=== PATIENT | female | born 1950 | race Hispanic/Latino ===

== ENCOUNTER 2020-05-12 05:55 | Observation (INO) | payer MEDICARE, OTHER ==
--- NOTE | 2020-05-08 11:33 | Diagnostic Imaging Report ---
EXAMINATION: CHEST 2 VIEWS INDICATION: Pre-operative COMPARISON: None FINDINGS: LINES/TUBES:None LUNGS:The lungs are well-inflated. No focal consolidation or pulmonary edema. PLEURA:No pleural effusion or pneumothorax. MEDIASTINUM:The cardiomediastinal silhouette appears normal in size and shape. BONES/SOFT TISSUES:No acute osseous injury. ABDOMEN:No free air under the diaphragm. IMPRESSION: No focal pneumonia or pulmonary edema. Signed by: Astrid Blackwell MD on 05/08/2020 11:30 AM
[2020-05-08 11:46] LABS: BASOPHILS # (AUTO) 0.1 (0.0-0.1); BASOPHILS % 0.6 % (0.0-1.0); EOSINOPHILS # (AUTO) 0.2 (0.0-0.4); EOSINOPHILS % 2.1 % (0.0-6.0); HEMATOCRIT 39.2 % (34.2-44.1); HEMOGLOBIN 12.2 g/dL (12.0-16.0); LYMPHOCYTES # (AUTO) 2.5 (1.0-3.2); LYMPHOCYTES % 32.4 % (18.0-39.1); MEAN CORPUSCULAR HGB CONC 31.1 g/dL (31-35); MEAN CORPUSCULAR VOLUME 83.4 fL (81-99); MONOCYTES # (AUTO) 0.8 (0.2-0.8); MONOCYTES % 10.2 % (4.4-11.3); NEUTROPHILS # (AUTO) 4.2 (2.1-6.9); NEUTROPHILS % 54.3 % (38.7-80.0); PLATELET COUNT 292 x10e3/uL (140-360); RED CELL DISTRIBUTION WIDTH 14.4 % (11.7-14.4)
[2020-05-08 12:01] LABS: ANION GAP 11.5 mmol/L (8-16); BLOOD UREA NITROGEN 12 mg/dL (7-26); BUN/CREATININE RATIO 15 (6-25); CALCIUM 9.6 mg/dL (8.4-10.2); CARBON DIOXIDE 28 mmol/L (22-29); CHLORIDE 104 mmol/L (98-107); CREATININE, SERUM 0.79 mg/dL (0.57-1.11); EST GLOMERULAR FILTRATION RATE > 60 ML/MIN (60-); GLUCOSE 98 mg/dL (74-118); POTASSIUM 4.5 mmol/L (3.5-5.1); SODIUM 139 mmol/L (136-145)
[~2020-05-12] VITALS: Ht 160 cm; Wt 104.3 kg
[2020-05-12] VITALS (7 sets, daily range): BP systolic 98–129; BP diastolic 46–65
[~2020-05-12 05:55] MED LIST: AMLODIPINE BESYL5 MG PO; CLONIDINE HCL0.1 MG PO; OLMESARTAN-HCT1 EAC1 PO
[2020-05-12] MEDS ORDERED: BACITRACIN 50,000 UNIT VIAL ONE (06:47)
[2020-05-12] MEDS ORDERED: SODIUM CHLORIDE 0.9% 500ML 500 ML ONE (06:48)
[2020-05-12] MEDS ORDERED: VANCOMYCIN HCL 1,000 MG ONE (06:48)
[2020-05-12] MEDS ORDERED: TRANEXAMIC ACID 1,000 MG/10 ML ML ONE (06:49)
[2020-05-12] MEDS ORDERED: diclofenac PO (07:04)
[2020-05-12] MEDS ORDERED: CEFAZOLIN SOD 1 GM/NS 50ML 100 ML IV ONE (07:14)
[2020-05-12] MEDS ORDERED: GABAPENTIN 300 MG CAP ONE (07:14)
[2020-05-12] MEDS ORDERED: CELECOXIB 200 MG CAP ONE (07:14)
[2020-05-12] MEDS ORDERED: DEXAMETHASONE SOD PHOS 10 MG/1 ML VIAL ONE (07:14)
[2020-05-12] MEDS ORDERED: ROPIVACAINE 246.25 MG, EPINEPHRINE HCL 1:1000 1ML 0.5 MG, CLONIDINE HCL 0.08 MG, KETORO... INJ ONE ×5 (08:00)
[2020-05-12] MEDS ORDERED: ACETAMINOPHEN 650 MG SUPP PR PRN (09:30)
[2020-05-12] MEDS ORDERED: ZOLPIDEM TARTRATE 5 MG TAB PO PRN ×2 (09:30→21:00)
[2020-05-12] MEDS ORDERED: DOCUSATE SODIUM 100 MG CAP PO PRN (09:30)
[2020-05-12] MEDS ORDERED: DIPHENHYDRAMINE HCL INJ 50 MG/ML VIAL IV PRN ×2 (09:30→15:00)
[2020-05-12] MEDS ORDERED: ONDANSETRON HCL INJ 2MG/ML 2ML 2 MG/ML VIAL IV PRN (09:30)
[2020-05-12] MEDS ORDERED: HYDROCODONE/APAP 5MG-325MG TAB PO PRN (09:30)
--- NOTE | 2020-05-12 10:14 | Diagnostic Imaging Report ---
EXAMINATION: KNEE RIGHT 1-2 VIEWS INDICATION: Postoperative COMPARISON: None FINDINGS: AP and lateral portable radiographs of the right knee demonstrate immediate postoperative findings of right total knee replacement. Alignment is anatomic. No unexpected fracture. Postoperative subcutaneous soft tissue emphysema. Surgical skin ly in place. IMPRESSION: Anatomic alignment status post right total knee replacement. Signed by: Astrid Blackwell MD on 05/12/2020 10:11 AM
--- NOTE | 2020-05-12 11:27 | Operative Report ---
DATE OF PROCEDURE: 05/12/2020 SURGEON: Raheem Johnson MD SNUFF GRINDER AND SCREENER: Chris Lopez PA-C. PREOPERATIVE DIAGNOSIS: Osteoarthritis, right knee. POSTOPERATIVE DIAGNOSIS: Osteoarthritis, right knee. PROCEDURE: Right total knee arthroplasty, * added complexity secondary to BMI greater than 40. INDICATIONS: The patient is a 69-year-old lady with end-stage arthritis of her right knee. She has failed conservative management and would like to proceed with a right total knee replacement. The risks and benefits of the procedure have been explained. All of her questions have been answered. She states she understands and wishes to proceed. PROCEDURE IN DETAIL: The patient was brought to the operating room and placed under general anesthetic. She received prophylactic antibiotics, a regional block, and tranexamic acid in the holding area. Her right lower extremity was prepped and draped in a sterile manner. A preoperative time-out was performed. Added time and personnel were necessary for prepping, draping, and positioning due to the patient's body mass index over 40. The leg was exsanguinated and a proximal tourniquet was inflated to 300 mmHg. An anterior incision with a medial parapatellar arthrotomy was performed. A slightly more extensile incision was necessary due to the patient's body mass index. Soft tissue releases were performed to bring the knee up into flexion with the patella everted. Marginal osteophytes, meniscal remnants in the cruciate ligaments were removed. A [employer] posterior stabilized knee system with ultracongruent tibial inserts were used. An extramedullary cutting guide was used to resect the proximal tibia. The tibial base plate was noted to be a size 4. The central fin punch was impacted and attention was directed towards the distal femur. An intramedullary cutting guide was used to resect the distal femur in 6 degrees of valgus and rotation referencing off a combination of landmarks including the posterior condyles, Whitesides line and the epicondylar axis. The femoral component was a size 5. The anterior and posterior cuts were made. Trial reductions were performed. A 9 mm ultracongruent tibial insert provided appropriate soft tissue balancing in full extension and 90 degrees of flexion. The patella was resurfaced with a 29 mm x 7.5 mm patellar button. The thickness was checked before and after resurfacing and was right around 22 mm. Patellar tracking was noted to be concentric. The trial implants were then all removed. The knee was thoroughly irrigated with a shower tip pulsatile lavage. All bone cuts had also been irrigated with a spray mixture of diluted polymyxin and vancomycin spray. A 100 mL premixed pericapsular SERG injection was placed into the surrounding soft tissue. The knee was further irrigated and then the components were cemented into place using a single mix of Biomet high viscosity cement preloaded with antibiotics. Care was taken to remove extravasated cement. The wound was further irrigated while the cement cured. The arthrotomy was then closed with interrupted #1 Ethibond. A 500 mg of vancomycin powder was sprinkled into the deep wound prior to closure. The knee was carefully put through flexion and extension to ensure a secure closure. The skin was then carefully closed with subcuticular Vicryl and ly. Her skin was very thin. A sterile Aquacel bandage was applied. She was extubated and transported to the recovery room in stable condition. Blood loss was minimal. All needle and sponge counts were correct Raheem Johnson MD DR/MAUREEN /[id number]
[2020-05-12] MEDS: SODIUM CHLORIDE 0.9% 1000ML 1,000 ML IV SCH ×2 (11:38→15:59)
[2020-05-12] MEDS ORDERED: CEFAZOLIN SOD 1 GM/NS 50ML 50 ML IV SCH (14:00)
--- NOTE | 2020-05-12 14:12 | NUR ---
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 PROVIDED BY [employer] [phone] [place] SIGNED AND ON CHART COPY LEFT WITH PATIENT GAVE CARD FOR QUESTIONS AND OR CONCERNS. `
[2020-05-12] MEDS ORDERED: FENTANYL CITRATE/PF 100MCG/2 ML INJ ONE (14:13)
[2020-05-12] MEDS ORDERED: MIDAZOLAM HCL 2 MG/2 ML VIAL ONE (14:13)
[2020-05-12] MEDS: CEFAZOLIN SOD 1 GM/NS 50ML 50 ML IV SCH (15:59)
[2020-05-12] MEDS: CELECOXIB 200 MG CAP PO SCH (16:45)
--- NOTE | 2020-05-12 17:42 | Consultation ---
DATE OF CONSULTATION: 05/12/2020 REASON FOR CONSULTATION: Medical management. HISTORY OF PRESENT ILLNESS: This is a 69-year-old woman, who was admitted to [facility] with diagnosis of advanced right knee osteoarthritis. The patient underwent right total knee arthroplasty, which was performed by her orthopedist, namely Dr. Raheem Johnson. The patient states the pain is controlled. The patient states that she could not name the day with therapy after the surgery because she has significant amount of arthritic pain in her left knee. The patient's left knee pain has worsened over the last few months because she has been compensating for right knee arthritic pain. The patient voices no other complaints. Blood work done on May 08, 2020, revealed a normal complete blood count and basic metabolic profile. REVIEW OF SYSTEMS: GENERAL: Weight is stable. No fever or chills. HEENT: No headaches. No vision changes. CARDIOVASCULAR/RESPIRATORY: No chest pain. No short of breath or cough. GI: No nausea, vomiting, diarrhea, or constipation. : No Galarza catheter in place. NEUROMUSCULAR: Complains of arthritic pain in her left knee. ALLERGIES: NO KNOWN DRUG ALLERGIES. HOME MEDICATIONS: 1. Amlodipine 5 mg daily. 2. Clonidine 0.1 mg daily. 3. Olmesartan/hydrochlorothiazide 40/12.5 once daily. 4. Diclofenac once daily as needed for severe arthritic pain. FAMILY HISTORY: Noncontributory. SOCIAL HISTORY: The woman is single, lives alone. No history of tobacco, alcohol use. The patient states she is retired. The patient states she does have family members that can assist her. PAST SURGICAL HISTORY: 1. Right total knee arthroplasty today. 2. Left ankle open reduction, internal fixation. PAST MEDICAL HISTORY: 1. Extreme obesity BMI 42. 2. Hypertensive heart disease. 3. Bilateral knee degenerative joint disease. PHYSICAL EXAMINATION: GENERAL: She is awake, alert and fully oriented . Her [id number] is at bedside. VITAL SIGNS: Height 5 feet 2 inches, weighs 230 pounds, BMI 42. Blood pressure is 98/48, pulse 84, respiratory rate 18, temperature 97.7, oxygen saturation 98% on room air. INTEGUMENT: Skin is warm dry. No pallor, jaundice, or diaphoresis. HEENT: Anicteric sclerae with moist mucous membranes. NECK: Supple. CARDIOVASCULAR: Regular rate and rhythm. LUNGS: No rales. No rhonchi. No wheezes. ABDOMEN: Obese yet benign. Normal bowel sounds. Nontender. Abdomen is soft. EXTREMITIES: Right knee is currently dressed. Left bony knee deformity with crepitus and tenderness. Sequential compression devices are currently in place in the patient's bilateral feet. NEUROLOGIC: Intact. DIAGNOSES: 1. Status post right total knee arthroplasty. 2. Extreme obesity, BMI 42. 3. Hypertensive heart disease. 4. Left knee degenerative joint disease. PLAN: 1. We will mobilize the patient with therapy. 2. Encourage incentive spirometer usage to prevent atelectasis. 3. Blood pressure monitor and control. 4. Follow renal function and electrolytes since this patient is on diuretics. 5. Follow hemoglobin and hematocrit. 6. We would like to thank Dr. Raheem Johnson for this generous consult. I spent 40 minutes in the care of this patient. MD NITO Cazares/MAUREEN /[id number] MTDElizabeth
[2020-05-12] MEDS ORDERED: ONDANSETRON HCL INJ 2MG/ML 2ML 2 MG/ML VIAL ONE (18:40)
[2020-05-12] MEDS ORDERED: ACETAMINOPHEN 1000 MG/100 ML IV ONE (18:40)
[2020-05-12] MEDS ORDERED: PROPOFOL IV EMULSION 10 MG/ML 20 ML VIAL ONE (18:40)
[2020-05-12] MEDS ORDERED: LIDOCAINE HCL 2% LOCAL INJ 5 ML SDV VIAL INJ ONE (18:40)
[2020-05-12] MEDS ORDERED: SEVOFLURANE INHAL SOLN 250 ML PEN BTL ONE (18:40)
[2020-05-12] MEDS ORDERED: BUPIVACAINE HCL 0.5% INJ 30 ML VIAL INJ ONE (18:56)
[2020-05-12] MEDS ORDERED: EPINEPHRINE HCL 1:1000 1ML 1 MG/ML AMP ONE (18:56)
[2020-05-12] MEDS: ASPIRIN 325 MG TAB PO SCH (21:07)
[2020-05-12] MEDS: KETOROLAC TROMETHAMINE 30 MG/ML VIAL IV PRN (22:39)
[2020-05-13] VITALS (8 sets, daily range): BP systolic 107–122; BP diastolic 45–68
[2020-05-13 05:25] LABS: BASOPHILS % 0.1 % (0.0-1.0); HEMATOCRIT 35.7 % (34.2-44.1); HEMOGLOBIN 11.1 g/dL (12.0-16.0); LYMPHOCYTES # (AUTO) 1.6 (1.0-3.2); LYMPHOCYTES % 11.5 % (18.0-39.1); MEAN CORPUSCULAR HEMOGLOBIN 26.1 pg (28-32); MEAN CORPUSCULAR HGB CONC 31.1 g/dL (31-35); MONOCYTES # (AUTO) 0.9 (0.2-0.8); MONOCYTES % 6.2 % (4.4-11.3); NEUTROPHILS # (AUTO) 11.5 (2.1-6.9); NEUTROPHILS % 81.8 % (38.7-80.0); PLATELET COUNT 237 x10e3/uL (140-360); RED BLOOD COUNT 4.25 x10e6/uL (3.6-5.1); RED CELL DISTRIBUTION WIDTH 14.1 % (11.7-14.4)
[2020-05-13 05:56] LABS: ANION GAP 12.2 mmol/L (8-16); BLOOD UREA NITROGEN 22 mg/dL (7-26); BUN/CREATININE RATIO 25 (6-25); CALCIUM 8.4 mg/dL (8.4-10.2); CARBON DIOXIDE 22 mmol/L (22-29); CHLORIDE 108 mmol/L (98-107); CREATININE, SERUM 0.87 mg/dL (0.57-1.11); EST GLOMERULAR FILTRATION RATE > 60 ML/MIN (60-); GLUCOSE 132 mg/dL (74-118); POTASSIUM 4.2 mmol/L (3.5-5.1); SODIUM 138 mmol/L (136-145)
--- NOTE | 2020-05-13 06:15 | NUR ---
Placed on CPM at 60, tolerating. Will continue to monitor and increase to goal.
--- NOTE | 2020-05-13 06:20 | NUR ---
Increased to 65, tolerating will continue to monitor.
--- NOTE | 2020-05-13 06:25 | NUR ---
Patient tolerating 65, increased to 70. Tolerating, no c/o pain. Will continue to monitor.
--- NOTE | 2020-05-13 07:08 | NUR ---
Bedside report and walking rounds completed with oncoming nurse. Patient in bed with call light within reach. No issues or concerns noted.
[2020-05-13] MEDS: SODIUM CHLORIDE 0.9% 1000ML 1,000 ML IV SCH ×2 (07:15→17:13)
[2020-05-13] MEDS: CEFAZOLIN SOD 1 GM/NS 50ML 50 ML IV SCH ×2 (08:44)
[2020-05-13] MEDS: CELECOXIB 200 MG CAP PO SCH ×2 (08:44→17:18)
[2020-05-13] MEDS: ASPIRIN 325 MG TAB PO SCH ×2 (08:44→17:18)
[2020-05-13] MEDS ORDERED: ONDANSETRON HCL 4 MG ORAL DISINTEGRATING TAB PO PRN (09:15)
[2020-05-13] MEDS ORDERED: ACETAMINOPHEN 1000 MG/100 ML IV PRN (09:30)
--- NOTE | 2020-05-13 10:12 | NUR ---
Dictated note: [id number]
--- NOTE | 2020-05-13 10:51 | Progress Note ---
DATE: 05/13/2020 CHIEF COMPLAINT/HISTORY OF PRESENT ILLNESS: This is a 69-year-old woman, who was admitted with diagnosis of advance right knee degenerative joint disease. Yesterday, the patient underwent successful right total knee arthroplasty. The patient unfortunately says she cannot ambulate with therapy because she does not have the strength to put weight on her right lower extremity. The patient states her pain is actually well controlled. Blood work today is unremarkable. The patient denies any fever or chills. The patient denies any chest pain, shortness of breath, or cough. REVIEW OF SYSTEMS: As per HPI. PHYSICAL EXAMINATION: GENERAL: She is awake and alert. She has an adult female relative at bedside, who is only Yoruba speaking. The patient is also only Yoruba speaking. She does not appear to be in any distress. She is fully oriented. VITAL SIGNS: Blood pressure is 110/50, pulse is 88, respiratory rate 16, and oxygen saturation is 95% on room air, and temperature 97.7. BMI is 42. Height 5 feet 2 inches, weight is 230 pounds. INTEGUMENT: Skin is warm and dry. No pallor, jaundice, or diaphoresis. HEENT: Anterior sclerae with moist mucous membranes. NECK: Supple. CARDIOVASCULAR: Distant heart sounds. Regular rate and rhythm. LUNGS: No rales. No rhonchi or wheezes. ABDOMEN: Obese, yet benign. EXTREMITIES: The left knee is currently dressed. NEUROLOGICAL: Intact. No deficits appreciated. Once again, the patient cannot ambulate because she cannot bear weight on the right lower leg due to instability. DIAGNOSES: 1. Status post right total knee arthroplasty. 2. Extreme obesity with BMI 42. 3. Hypertensive heart disease. 4. Left knee degenerative joint disease. PLAN: 1. We will recommend the patient to use incentive spirometry to prevent atelectasis. 2. Blood pressure monitoring and control. 3. Pain control. 4. We will encourage mobilization with Physical Therapy. 5. We will likely order a care home facility evaluation. I spent 30 minutes in the care of this patient. MD NITO Cazares/MAUREEN /[id number] DEMETRICE
[2020-05-13] MEDS ORDERED: SODIUM CHLORIDE 0.9% 1000ML 1,000 ML ONE (10:52)
--- NOTE | 2020-05-13 19:00 | NUR ---
Received the patient in report.on cpm .tolerating well.bed locked and in lowest position.phone and call light within reach.instructed to call for assistance as needed.
[2020-05-14] VITALS: BP 127/58
[2020-05-14] MEDS: HYDROCODONE/APAP 7.5MG-325MG 1 EA TAB PO PRN ×2 (00:40→06:31)
[2020-05-14 04:00] VITALS: BP 112/66
[2020-05-14 05:12] LABS: BASOPHILS % 0.4 % (0.0-1.0); EOSINOPHILS # (AUTO) 0.1 (0.0-0.4); EOSINOPHILS % 0.6 % (0.0-6.0); HEMATOCRIT 32.8 % (34.2-44.1); HEMOGLOBIN 10.1 g/dL (12.0-16.0); LYMPHOCYTES # (AUTO) 2.2 (1.0-3.2); LYMPHOCYTES % 26.5 % (18.0-39.1); MEAN CORPUSCULAR HEMOGLOBIN 25.7 pg (28-32); MEAN CORPUSCULAR HGB CONC 30.8 g/dL (31-35); MEAN CORPUSCULAR VOLUME 83.5 fL (81-99); MONOCYTES # (AUTO) 0.9 (0.2-0.8); MONOCYTES % 10.9 % (4.4-11.3); PLATELET COUNT 217 x10e3/uL (140-360); RED BLOOD COUNT 3.93 x10e6/uL (3.6-5.1); RED CELL DISTRIBUTION WIDTH 14.5 % (11.7-14.4)
[2020-05-14 05:40] LABS: ALANINE AMINOTRANSFERASE 10 IU/L (0-55); ALBUMIN 2.7 g/dL (3.5-5.0); ALBUMIN/GLOBULIN RATIO 0.9 (0.8-2.0); ALKALINE PHOSPHATASE 52 IU/L (40-150); ANION GAP 8.7 mmol/L (8-16); BLOOD UREA NITROGEN 19 mg/dL (7-26); BUN/CREATININE RATIO 28 (6-25); CALCIUM 8.4 mg/dL (8.4-10.2); CARBON DIOXIDE 25 mmol/L (22-29); CHLORIDE 108 mmol/L (98-107); CREATININE, SERUM 0.69 mg/dL (0.57-1.11); EST GLOMERULAR FILTRATION RATE > 60 ML/MIN (60-); GLUCOSE 98 mg/dL (74-118); POTASSIUM 3.7 mmol/L (3.5-5.1); SODIUM 138 mmol/L (136-145)
--- NOTE | 2020-05-14 06:31 | NUR ---
Put cpm on @ 70 flexion degree.
--- NOTE | 2020-05-14 06:48 | NUR ---
Bed side shift report given to oncoming Rn.stable condition.
[2020-05-14 08:01] VITALS: BP 139/64
[2020-05-14] MEDS: KETOROLAC TROMETHAMINE 30 MG/ML VIAL IV PRN (09:04)
[2020-05-14] MEDS: CELECOXIB 200 MG CAP PO SCH (09:05)
[2020-05-14] MEDS: ASPIRIN 325 MG TAB PO SCH (09:05)
[2020-05-14 09:11] VITALS: BP 139/64
--- NOTE | 2020-05-14 09:46 | Progress Note ---
DATE: 05/14/2020 CHIEF COMPLAINT/HISTORY OF PRESENT ILLNESS: A 69-year-old white woman, who underwent right total knee arthroplasty on May 12, 2020. The patient states she is experiencing pain in her right knee at this time. The patient has been on the continuous passive motion machine for the last 2 hours. The patient could not ambulate with therapy yesterday because her right lower extremity would buckle. The patient states she is motivated to participate in therapy today. Blood work today, namely complete blood count and comprehensive metabolic profile is unremarkable except hemoglobin was 10.1 g/dL. REVIEW OF SYSTEMS: As per HPI. PHYSICAL EXAMINATION: GENERAL: She is awake, alert. She is fully oriented. VITAL SIGNS: Blood pressure is 138/64, pulse 74, respiratory rate 18, oxygen saturation 96% on room air, temperature 97.7, height 5 feet 2 inches, weight is 230 pounds, BMI is 42. INTEGUMENT: Skin is warm and dry. No pallor, jaundice, or diaphoresis. HEENT: Anterior sclerae with moist mucous membranes. NECK: Supple. CARDIOVASCULAR: Distant heart sounds. Regular rate and rhythm. LUNGS: No rales. No rhonchi. No wheezes. ABDOMEN: Obese, benign. EXTREMITIES: The right knee is currently dressed. NEUROLOGIC: Intact. No deficits appreciated. Once again, the patient cannot ambulate because she cannot bear weight on the right lower leg due to instability. DIAGNOSES: 1. Status post right total knee arthroplasty. 2. Extreme obesity, BMI 42. 3. Hypertensive heart disease. 4. Left knee degenerative joint disease. PLAN: 1. Recommend the patient continue using incentive spirometer to prevent atelectasis. 2. Pain control. 3. Blood pressure monitoring, and control. 4. Encourage mobilization with physical therapy. 5. The patient will likely transfer to a senior living facility today. I spent 30 minutes in the care of the patient. MD NITO Cazares/MAUREEN /[id number] MTDElizabeth
[2020-05-14 12:31] VITALS: BP 145/67
== END 2020-05-14 13:40 | disposition home or self-care (01) ==
LOC: OR 05:55 → PACU V 09:27 → MED/SURG 10:14
PROVIDERS: ADMIT Specialist; ATTEND Specialist
DX: M17.0 Bilateral primary osteoarthritis of knee (principal); E66.01 Morbid (severe) obesity due to excess calories; Z68.41 Body mass index [BMI] 40.0-44.9, adult; I11.9 Hypertensive heart disease without heart failure; Z11.59 Encounter for screening for other viral diseases
CPT/HCPCS: 27447; 36415 ×3; 71046; 73560; 80048 ×2; 80053; 85025 ×3; 86850; 86900; 86920; 87635; 96361; 97110; 97116 ×2; 97139 ×3; 97162; 97530 ×4; C1713 ×3; C1776 ×2; G0378 ×3; J0131; J0171; J0690 ×2; J1100; J1885 ×2; J2001; J2250; J2405; J2704; J2795; J3010; J3370; J7030; J7040